=== PATIENT | male | born 1945 | race Hispanic/Latino ===

== ENCOUNTER 2020-11-08 12:56 | Inpatient (IN) | payer MEDICARE, OTHER ==
[~2020-11-08] VITALS: Ht 162.6 cm; Wt 66.2 kg
[2020-11-08 13:36] LABS: BASOPHILS % (AUTO) 0.2 % (0.0-5.0); EOSINOPHILS % (AUTO) 0.2 % (0.0-8.0); HEMATOCRIT 42.4 % (42-54); LYMPHOCYTES % (AUTO) 13.4 % (21.0-51.0); MEAN CORPUSCULAR HEMOGLOBIN 30.6 pg (27.0-33.0); MEAN CORPUSCULAR HGB CONC 35.1 g/dL (32.0-36.0); MEAN CORPUSCULAR VOLUME 87.1 fL (79-99); MONOCYTES % (AUTO) 7.6 % (3.0-13.0); NEUTROPHILS % (AUTO) 78.2 % (40.0-77.0); PLATELET COUNT (AUTO) 111 K/uL (130-400); RED BLOOD CELL COUNT(AUTO) 4.87 MIL/uL (4.50-6.20); RED CELL DISTRIBUTION WIDTH 12.9 % (11.0-15.5); WHITE BLOOD COUNT (AUTO) 4.5 K/uL (4.8-10.8)
[2020-11-08 13:47] LABS: POTASSIUM 3.7 mmol/L (3.5-5.1)
[2020-11-08 13:51] LABS: ALBUMIN 2.7 g/dL (3.5-5.0); BILIRUBIN,TOTAL 0.7 mg/dL (0.2-1.0)
[2020-11-08 13:53] LABS: ABG BASE EXCESS -2.7 mmol/L (-2.0-3.0); ABG HCO3 19.7 mmol/L (21.0-28.0); ABG OXYGEN SATURATION 96.8 % (95.0-99.0); ABG PCO2 28 mmHg (35-48)
[2020-11-08] MEDS ORDERED: 0.9%NACL 100ML 100 ML IV ONE (14:34)
[2020-11-08] MEDS ORDERED: CEFTRIAXONE 1G VIAL ONE (14:34)
[2020-11-08] MEDS ORDERED: DEXAMETHASONE SOD PHOSPHATE 10MG/ML 1ML VIAL ONE (14:34)
[2020-11-08] MEDS ORDERED: PHARMACY COMMUNICATION**REMDESIVIR ORDER MISC SCH (17:45)
[2020-11-08] MEDS ORDERED: 0.9% NACL 250ML 250 ML IV ONE (23:54)
[2020-11-09] VITALS: BP 147/81
[2020-11-09 04:12] VITALS: BP 113/59
[2020-11-09 06:29] LABS: HEMATOCRIT 41.5 % (42-54); LYMPHOCYTES % (AUTO) 16.1 % (21.0-51.0); MEAN CORPUSCULAR HEMOGLOBIN 30.6 pg (27.0-33.0); MEAN CORPUSCULAR HGB CONC 35.2 g/dL (32.0-36.0); MONOCYTES % (AUTO) 8.3 % (3.0-13.0); NEUTROPHILS % (AUTO) 74.4 % (40.0-77.0); PLATELET COUNT (AUTO) 125 K/uL (130-400); RED BLOOD CELL COUNT(AUTO) 4.77 MIL/uL (4.50-6.20); RED CELL DISTRIBUTION WIDTH 12.8 % (11.0-15.5); WHITE BLOOD COUNT (AUTO) 1.7 K/uL (4.8-10.8)
[2020-11-09 06:54] LABS: ALBUMIN 2.5 g/dL (3.5-5.0); BILIRUBIN,TOTAL 0.5 mg/dL (0.2-1.0); CREATININE 0.7 mg/dL (0.5-1.5); CRP QUANTITATIVE 79.7 mg/L (0.00-9.0); POTASSIUM 4.1 mmol/L (3.5-5.1); TOTAL PROTEIN, SERUM 6.9 g/dL (6.0-8.3)
[2020-11-09] MEDS ORDERED: PHARMACY COMMUNICATION MISC SCH (07:45)
[2020-11-09 08:36] VITALS: BP 107/59
[2020-11-09 08:59] LABS: ABG BASE EXCESS 0.7 mmol/L (-2.0-3.0); ABG HCO3 23.6 mmol/L (21.0-28.0); ABG PCO2 33 mmHg (35-48)
[2020-11-09] MEDS: DOXYCYCLINE HYCLATE 100 MG TABLET PO SCH ×2 (08:59→20:32)
[2020-11-09] MEDS: ENOXAPARIN SODIUM 40 MG/0.4 ML SYRINGE SQ SCH (08:59)
[2020-11-09] MEDS: CEFTRIAXONE 1G VIAL IVP SCH (08:59)
[2020-11-09 12:00] VITALS: BP 106/58
[2020-11-09] MEDS ORDERED: REMDESIVIR (EUA) 520 200 MG in 0.9% NACL 250ML 250 ML IV ONE (14:00)
[2020-11-09] MEDS ORDERED: COMPOUND IV REFRIGERATED 1 EACH IVSOLN MISC PRN (14:00)
[2020-11-09 16:00] VITALS: BP 113/57
[2020-11-09 20:20] VITALS: BP 120/60
[2020-11-09 22:51] LABS: APPEARANCE,URINE Clear (CLEAR); BILIRUBIN,URINE Negative (NEGATIVE); COLOR,URINE Yellow (YELLOW); GLUCOSE, URINE (UA) Negative (NEGATIVE); KETONES,URINE Negative (NEGATIVE); LEUKOCYTE ESTERASE ,URINE Negative (NEGATIVE); NITRATE,URINE Negative (NEGATIVE); OCCULT BLOOD,URINE Trace (NEGATIVE); PROTEIN,URINE Trace mg/dL (NEGATIVE)
[2020-11-09 23:02] LABS: BACTERIA,URINE Rare /HPF (None Seen); SQUAMOUS EPITHELIAL CELL,UR 0-2 /HPF (0-2); WBC,URINE 0-1 /HPF (0-1)
[2020-11-10 00:12] VITALS: BP 127/65
[2020-11-10 04:17] VITALS: BP 112/68
[2020-11-10 05:42] LABS: BASOPHILS % (AUTO) 0.2 % (0.0-5.0); HEMATOCRIT 39.9 % (42-54); LYMPHOCYTES % (AUTO) 10.9 % (21.0-51.0); MEAN CORPUSCULAR HEMOGLOBIN 30.9 pg (27.0-33.0); MEAN CORPUSCULAR HGB CONC 35.6 g/dL (32.0-36.0); MEAN CORPUSCULAR VOLUME 86.9 fL (79-99); MONOCYTES % (AUTO) 8.4 % (3.0-13.0); NEUTROPHILS % (AUTO) 79.6 % (40.0-77.0); PLATELET COUNT (AUTO) 137 K/uL (130-400); RED BLOOD CELL COUNT(AUTO) 4.59 MIL/uL (4.50-6.20); RED CELL DISTRIBUTION WIDTH 12.7 % (11.0-15.5); WHITE BLOOD COUNT (AUTO) 5.6 K/uL (4.8-10.8)
[2020-11-10 05:53] LABS: ALBUMIN 2.3 g/dL (3.5-5.0); BILIRUBIN,TOTAL 0.5 mg/dL (0.2-1.0); CREATININE 0.8 mg/dL (0.5-1.5); CRP QUANTITATIVE 39.6 mg/L (0.00-9.0); POTASSIUM 3.9 mmol/L (3.5-5.1); TOTAL PROTEIN, SERUM 6.4 g/dL (6.0-8.3)
[2020-11-10] MEDS: REMDESIVIR LABS MISC SCH (06:00)
[2020-11-10 08:00] VITALS: BP_SYST 104; BP_SYST 116; BP_DIAS 52; BP_DIAS 60
[2020-11-10] MEDS: DOXYCYCLINE HYCLATE 100 MG TABLET PO SCH ×2 (09:26→19:43)
[2020-11-10] MEDS: ENOXAPARIN SODIUM 40 MG/0.4 ML SYRINGE SQ SCH (09:26)
[2020-11-10] MEDS: CEFTRIAXONE 1G VIAL IVP SCH (09:26)
[2020-11-10 12:00] VITALS: BP 116/60
[2020-11-10] MEDS: REMDESIVIR (EUA) 520 100 MG in 0.9% NACL 250ML 250 ML IV SCH (15:18)
[2020-11-10 16:00] VITALS: BP 115/54
[2020-11-10 20:13] VITALS: BP 112/58
[2020-11-11 00:09] VITALS: BP 123/72
[2020-11-11 04:09] VITALS: BP 126/73
[2020-11-11 05:17] LABS: BASOPHILS % (AUTO) 0.1 % (0.0-5.0); EOSINOPHILS % (AUTO) 0.1 % (0.0-8.0); HEMATOCRIT 41.7 % (42-54); LYMPHOCYTES % (AUTO) 7.9 % (21.0-51.0); MEAN CORPUSCULAR HEMOGLOBIN 30.5 pg (27.0-33.0); MEAN CORPUSCULAR VOLUME 87.2 fL (79-99); MONOCYTES % (AUTO) 6.2 % (3.0-13.0); NEUTROPHILS % (AUTO) 85.2 % (40.0-77.0); PLATELET COUNT (AUTO) 132 K/uL (130-400); RED BLOOD CELL COUNT(AUTO) 4.78 MIL/uL (4.50-6.20); RED CELL DISTRIBUTION WIDTH 12.8 % (11.0-15.5); WHITE BLOOD COUNT (AUTO) 7.9 K/uL (4.8-10.8)
[2020-11-11 05:32] LABS: CREATININE 0.7 mg/dL (0.5-1.5); CRP QUANTITATIVE 41.9 mg/L (0.00-9.0); POTASSIUM 3.7 mmol/L (3.5-5.1)
[2020-11-11] MEDS: REMDESIVIR LABS MISC SCH (05:53)
[2020-11-11 08:00] VITALS: BP 98/53
[2020-11-11] MEDS: DOXYCYCLINE HYCLATE 100 MG TABLET PO SCH ×2 (09:20→20:05)
[2020-11-11] MEDS: ENOXAPARIN SODIUM 40 MG/0.4 ML SYRINGE SQ SCH (09:21)
[2020-11-11 12:00] VITALS: BP 108/55
[2020-11-11 14:13] LABS: ALBUMIN 2.5 g/dL (3.5-5.0); BILIRUBIN,TOTAL 0.6 mg/dL (0.2-1.0); TOTAL PROTEIN, SERUM 6.5 g/dL (6.0-8.3)
[2020-11-11] MEDS: REMDESIVIR (EUA) 520 100 MG in 0.9% NACL 250ML 250 ML IV SCH (15:29)
[2020-11-11 17:30] VITALS: BP 116/61
[2020-11-11 20:00] VITALS: BP 141/80
[2020-11-12] VITALS: BP 111/61
[2020-11-12 04:00] VITALS: BP 136/78
[2020-11-12] MEDS: REMDESIVIR LABS MISC SCH (05:02)
[2020-11-12 06:41] LABS: BASOPHILS % (AUTO) 0.1 % (0.0-5.0); EOSINOPHILS % (AUTO) 0.2 % (0.0-8.0); HEMATOCRIT 43.9 % (42-54); LYMPHOCYTES % (AUTO) 6.1 % (21.0-51.0); MEAN CORPUSCULAR HEMOGLOBIN 30.8 pg (27.0-33.0); MEAN CORPUSCULAR HGB CONC 35.5 g/dL (32.0-36.0); MEAN CORPUSCULAR VOLUME 86.6 fL (79-99); MONOCYTES % (AUTO) 3.8 % (3.0-13.0); NEUTROPHILS % (AUTO) 89.3 % (40.0-77.0); PLATELET COUNT (AUTO) 155 K/uL (130-400); RED BLOOD CELL COUNT(AUTO) 5.07 MIL/uL (4.50-6.20); RED CELL DISTRIBUTION WIDTH 12.9 % (11.0-15.5); WHITE BLOOD COUNT (AUTO) 9.4 K/uL (4.8-10.8)
[2020-11-12 07:03] LABS: ALBUMIN 2.4 g/dL (3.5-5.0); BILIRUBIN,TOTAL 1.1 mg/dL (0.2-1.0); CREATININE 0.7 mg/dL (0.5-1.5); POTASSIUM 3.9 mmol/L (3.5-5.1); TOTAL PROTEIN, SERUM 6.7 g/dL (6.0-8.3)
[2020-11-12 08:07] VITALS: BP 122/79
[2020-11-12] MEDS: DOXYCYCLINE HYCLATE 100 MG TABLET PO SCH ×2 (09:22→20:11)
[2020-11-12] MEDS: ENOXAPARIN SODIUM 40 MG/0.4 ML SYRINGE SQ SCH (09:26)
[2020-11-12] MEDS: DEXAMETHASONE SOD PHOSPHATE 4 MG/ML 1ML VIAL IVP SCH (09:27)
[2020-11-12] MEDS: ONDANSETRON 4MG INJ IVP PRN (12:13)
[2020-11-12] MEDS: PANTOPRAZOLE 40 MG/VIAL IVP SCH (12:13)
[2020-11-12] MEDS ORDERED: KCL 20 MEQ ERTAB PO SCH (14:20)
[2020-11-12] MEDS: REMDESIVIR (EUA) 520 100 MG in 0.9% NACL 250ML 250 ML IV SCH (14:25)
[2020-11-12 17:12] VITALS: BP 131/76
[2020-11-12 20:20] VITALS: BP 125/74
[2020-11-13 00:16] VITALS: BP 135/80
[2020-11-13 04:25] VITALS: BP 125/73
[2020-11-13] MEDS: REMDESIVIR LABS MISC SCH (05:37)
[2020-11-13 05:50] LABS: BASOPHILS % (AUTO) 0.1 % (0.0-5.0); EOSINOPHILS % (AUTO) 0.2 % (0.0-8.0); HEMATOCRIT 40.4 % (42-54); LYMPHOCYTES % (AUTO) 3.5 % (21.0-51.0); MEAN CORPUSCULAR HEMOGLOBIN 30.7 pg (27.0-33.0); MEAN CORPUSCULAR HGB CONC 35.4 g/dL (32.0-36.0); MEAN CORPUSCULAR VOLUME 86.7 fL (79-99); MONOCYTES % (AUTO) 5.1 % (3.0-13.0); NEUTROPHILS % (AUTO) 90.5 % (40.0-77.0); PLATELET COUNT (AUTO) 157 K/uL (130-400); RED BLOOD CELL COUNT(AUTO) 4.66 MIL/uL (4.50-6.20); RED CELL DISTRIBUTION WIDTH 12.7 % (11.0-15.5); WHITE BLOOD COUNT (AUTO) 9.4 K/uL (4.8-10.8)
[2020-11-13 06:11] LABS: ALBUMIN 2.3 g/dL (3.5-5.0); CREATININE 0.8 mg/dL (0.5-1.5); POTASSIUM 4.1 mmol/L (3.5-5.1); TOTAL PROTEIN, SERUM 6.1 g/dL (6.0-8.3)
[2020-11-13 09:03] VITALS: BP 140/76
[2020-11-13] MEDS: ENOXAPARIN SODIUM 40 MG/0.4 ML SYRINGE SQ SCH (09:28)
[2020-11-13] MEDS: PANTOPRAZOLE 40 MG/VIAL IVP SCH (09:28)
[2020-11-13] MEDS: DEXAMETHASONE SOD PHOSPHATE 4 MG/ML 1ML VIAL IVP SCH (09:29)
[2020-11-13] MEDS: DOXYCYCLINE HYCLATE 100 MG TABLET PO SCH ×2 (09:30→20:57)
[2020-11-13 12:00] VITALS: BP 142/75
[2020-11-13] MEDS: ONDANSETRON 4MG INJ IVP PRN (12:42)
[2020-11-13 17:16] VITALS: BP 148/54
[2020-11-13] MEDS: REMDESIVIR (EUA) 520 100 MG in 0.9% NACL 250ML 250 ML IV SCH (17:44)
[2020-11-13] MEDS ORDERED: REMDESIVIR (EUA) 520 100 MG in 0.9% NACL 250ML 250 ML IV SCH (18:00)
[2020-11-13 20:12] VITALS: BP 124/61
[2020-11-14 00:24] VITALS: BP 118/76
[2020-11-14 04:51] VITALS: BP 114/66
[2020-11-14 08:00] VITALS: BP 127/70
[2020-11-14] MEDS: PANTOPRAZOLE 40 MG/VIAL IVP SCH (08:44)
[2020-11-14] MEDS: DEXAMETHASONE SOD PHOSPHATE 4 MG/ML 1ML VIAL IVP SCH (08:45)
[2020-11-14] MEDS: ENOXAPARIN SODIUM 40 MG/0.4 ML SYRINGE SQ SCH (08:46)
[2020-11-14 12:00] VITALS: BP 123/79
[2020-11-14 16:00] VITALS: BP 125/73
[2020-11-14] MEDS ORDERED: DEXA6TAB7 PO (16:50)
[2020-11-14] MEDS ORDERED: ASPI-1197 PO (16:50)
[2020-11-14] MEDS ORDERED: PANT40SU PO (16:50)
[2020-11-14 20:21] VITALS: BP 122/77
[2020-11-15 00:18] VITALS: BP 139/86
[2020-11-15 04:42] VITALS: BP 117/74
[2020-11-15 08:54] VITALS: BP 122/73
[2020-11-15] MEDS: ENOXAPARIN SODIUM 40 MG/0.4 ML SYRINGE SQ SCH (09:51)
[2020-11-15] MEDS: DEXAMETHASONE SOD PHOSPHATE 4 MG/ML 1ML VIAL IVP SCH (09:59)
[2020-11-15] MEDS: PANTOPRAZOLE 40 MG/VIAL IVP SCH (09:59)
[2020-11-15 12:00] VITALS: BP 112/72
[2020-11-15] MEDS ORDERED: DEXAMETHASONE 4 MG TAB PO SCH (16:30)
[2020-11-15 16:43] VITALS: BP 117/67
[2020-11-15 20:32] VITALS: BP 124/72
[2020-11-16] VITALS (7 sets, daily range): BP systolic 95–135; BP diastolic 62–77
[2020-11-16] MEDS: PANTOPRAZOLE 40 MG TAB DR PO SCH (09:57)
[2020-11-16] MEDS: ENOXAPARIN SODIUM 40 MG/0.4 ML SYRINGE SQ SCH (09:58)
[2020-11-17 00:15] VITALS: BP 123/76
[2020-11-17 04:36] VITALS: BP 114/66
[2020-11-17] MEDS: PANTOPRAZOLE 40 MG TAB DR PO SCH (08:08)
[2020-11-17] MEDS: ENOXAPARIN SODIUM 40 MG/0.4 ML SYRINGE SQ SCH (08:10)
[2020-11-17 09:15] VITALS: BP 110/67
[2020-11-17 12:37] VITALS: BP 101/57
== END 2020-11-17 13:30 | disposition home or self-care (01) | DRG 177 ==
LOC: EDH 12:56 → EDHIP 17:36 → 4AH 23:37
PROVIDERS: ADMIT Internal Medicine; ATTEND Internal Medicine
PROC: XW033E5 Introduction of Remdesivir Anti-infective into Peripheral Vein, Percutaneous Approach, New Technology Group 5 (ICD-10-PCS; principal; 2020-11-09)
PROC: XW13325 Transfusion of Convalescent Plasma (Nonautologous) into Peripheral Vein, Percutaneous Approach, New Technology Group 5 (ICD-10-PCS; 2020-11-09)
DX: U07.1 COVID-19 (principal); J12.82 Pneumonia due to coronavirus disease 2019; J96.01 Acute respiratory failure with hypoxia; J98.11 Atelectasis; D72.810 Lymphocytopenia; D69.59 Other secondary thrombocytopenia; D72.10 Eosinophilia, unspecified; N30.90 Cystitis, unspecified without hematuria; E87.6 Hypokalemia; E87.8 Other disorders of electrolyte and fluid balance, not elsewhere classified; Z99.81 Dependence on supplemental oxygen
CPT/HCPCS: 36415; 36600; 71045; 80053; 81001; 82728; 82803; 82948; 83615; 83735; 84145; 85025; 85378; 86140; 86900; 86901; 86927; 87040; 87426; 93005; 94760; 99291; C9113; G0378; J0696; J1100; J1650; J2405; J7050; J8540